=== PATIENT | male | born 1965 | race African-American/Black ===

== ENCOUNTER 2020-10-15 04:02 | Emergency (ER) | payer SELFPAY ==
[2020-10-15] MEDS ORDERED: Morphine 4 MG/ML VIAL ONE (04:12)
[2020-10-15] MEDS ORDERED: Ondansetron PF 4 MG/2 ML Vial ONE (04:12)
[2020-10-15 05:27] LABS: Prothrombin Time 12.1 sec (12.0-14.7)
[2020-10-15 05:32] LABS: INR-International Normal Ratio 0.9
[2020-10-15 05:33] LABS: Hemoglobin 14.9 g/dL (14.0-18.0); Red Blood Cell (RBC) Count 4.85 mill/uL (4.70-6.10); White Blood Cell (WBC) Count 10.9 thou/uL (4.8-10.8)
[2020-10-15 05:34] LABS: %Lymphocytes 29.5 % (21.0-51.0); %Monocytes 7.8 % (0.0-10.0); %Neutrophils 57.2 % (42.0-75.0); Mean Corpuscular Hemoglobin 30.8 pg (27.0-31.0); Mean Corpuscular Volume 93.5 fL (78.0-98.0); Platelet Count 184 thou/uL (130-400); RBC Distribution Width 11.3 % (11.5-14.5)
[2020-10-15 05:35] LABS: #Basophils 0.3 thou/uL (0.0-0.2); #Eosinphils 0.3 thou/uL (0.0-0.7); #Monocytes 0.8 thou/uL (0.11-0.59); #Neutrophils 6.2 thou/uL (1.40-6.50); %Basophils 2.6 % (0.0-1.0); %Eosinophils 2.9 % (0.0-10.0)
[2020-10-15 05:36] LABS: MDiff Complete? YES; Sodium 137 mmol/L (136-145)
[2020-10-15 05:37] LABS: BUN (Urea Nitrogen) 10 mg/dL (8.4-25.7); Calc. Creatinine Clearance 0 mL/min (70-130); Carbon Dioxide 23 mmol/L (22-29); Chloride 101 mmol/L (98-107); Potassium 4.1 mmol/L (3.5-5.1)
[2020-10-15 05:38] LABS: Albumin 4.2 g/dL (3.5-5.0); Bilirubin, Total 0.2 mg/dL (0.2-1.2); Calcium 9.2 mg/dL (7.8-10.44); Glucose 287 mg/dL (70-105); Protein, Total 7.8 g/dL (6.0-8.3)
[2020-10-15 05:39] LABS: AST (SGOT) 14 U/L (5-34); Alkaline Phosphatase 72 U/L (40-110); Globulin 3.4 g/dL (2.4-3.5)
[2020-10-15 05:40] LABS: ALT (SGPT) 19 U/L (8-55)
[2020-10-15 05:41] LABS: Anion Gap 17 mmol/L (10-20)
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
[2020-10-15] MEDS ORDERED: Iopamidol 370 76% 100 ML VIAL ONE (09:46)
== END 2020-10-15 08:30 | disposition home or self-care (01) ==
LOC: MADERS 04:02
DX: M54.5 Low back pain (principal); R10.814 Left lower quadrant abdominal tenderness; F17.210 Nicotine dependence, cigarettes, uncomplicated; V43.52XA Car driver injured in collision with other type car in traffic accident, initial encounter
CPT/HCPCS: 70450; 71260; 72125; 74177; 80053; 85025; 85610; 96374; 96375; G0390; J2270; J2405; Q9967